=== PATIENT | male | born 1985 | race American Indian/Alaskan Native ===

== ENCOUNTER 2016-06-18 18:52 | Emergency (ER) | payer OTHER ==
--- NOTE | 2016-06-18 22:27 | Emergency Department Report ---
ED ENT HPI - General Chief complaint: Sore Throat Stated complaint: THROAT PAIN/POSS CYST Source: patient Mode of arrival: Ambulatory Limitations: No Limitations - History of Present Illness Initial comments: 31 year old male presents to ED with sore throat, painful swallowing, dry cough x 3 days. patient denies fevers. patient states he had moderate swelling on left side of throat but today the swelling decreased and he could taste drainage in the back of his throat. patient is alert, stable, neurologically intact and in no acute distress during examination. MD complaint: sore throat -: Gradual Location: throat Severity: mild Quality: aching Consistency: intermittent Worsens with: swallowing Associated Symptoms: cough, pain with swallowing, sore throat - Related Data Previous Rx's Medication Instructions Recorded Last Taken Type Docusate Sodium [Colace] 100 mg PO BID #60 capsule 10/31/13 Unknown Rx Promethazine [Phenergan] 25 mg PO Q6H PRN #25 tablet 10/31/13 Unknown Rx Allergies Allergy/AdvReac Type Severity Reaction Status Date / Time No Known Allergies Allergy Verified 06/18/16 22:33 ED Dental HPI - General Chief complaint: Sore Throat Stated complaint: THROAT PAIN/POSS CYST Source: patient Mode of arrival: Ambulatory Limitations: No Limitations - Related Data Previous Rx's Medication Instructions Recorded Last Taken Type Docusate Sodium [Colace] 100 mg PO BID #60 capsule 10/31/13 Unknown Rx Promethazine [Phenergan] 25 mg PO Q6H PRN #25 tablet 10/31/13 Unknown Rx Allergies Allergy/AdvReac Type Severity Reaction Status Date / Time No Known Allergies Allergy Verified 06/18/16 22:33 ED Review of Systems ROS: Stated complaint: THROAT PAIN/POSS CYST Other details as noted in HPI Constitutional: denies: chills, fever Eyes: denies: eye pain, eye discharge, vision change ENT: ear pain, throat pain Respiratory: cough. denies: shortness of breath, wheezing Cardiovascular: denies: chest pain, palpitations Endocrine: no symptoms reported Gastrointestinal: denies: abdominal pain, nausea, diarrhea Genitourinary: denies: urgency, dysuria Musculoskeletal: denies: back pain, joint swelling, arthralgia Skin: denies: rash, lesions Neurological: denies: headache, weakness, paresthesias Psychiatric: denies: anxiety, depression Hematological/Lymphatic: swollen glands. denies: easy bleeding, easy bruising ED Past Medical Hx - Past Medical History Additional medical history: Cyst in throat - Surgical History Additional Surgical History: Hernia Repair - Social History Smoking Status: Current Every Day Smoker Substance Use Type: None - Medications Home Medications: Home Medications Medication Instructions Recorded Confirmed Last Taken Type Docusate Sodium [Colace] 100 mg PO BID #60 capsule 10/31/13 Unknown Rx Promethazine [Phenergan] 25 mg PO Q6H PRN #25 tablet 10/31/13 Unknown Rx ED Physical Exam - General Limitations: No Limitations General appearance: alert, in no apparent distress - Head Head exam: Present: atraumatic, normocephalic - Eye Eye exam: Present: normal appearance - ENT ENT exam: Present: normal exam, mucous membranes moist, TM's normal bilaterally - Neck Neck exam: Present: normal inspection, tenderness, full ROM, lymphadenopathy ( left cervical anterior lymph node minimally enlarged) - Respiratory Respiratory exam: Present: normal lung sounds bilaterally. Absent: respiratory distress - Cardiovascular Cardiovascular Exam: Present: regular rate, normal rhythm. Absent: systolic murmur, diastolic murmur, rubs, gallop - GI/Abdominal GI/Abdominal exam: Present: soft, normal bowel sounds - Rectal Rectal exam: Present: deferred - Extremities Exam Extremities exam: Present: normal inspection - Back Exam Back exam: Present: normal inspection - Neurological Exam Neurological exam: Present: alert, oriented X3 - Psychiatric Psychiatric exam: Present: normal affect, normal mood - Skin Skin exam: Present: warm, dry, intact, normal color. Absent: rash ED Course Vital Signs 06/18/16 06/19/16 19:40 00:06 Temperature 97.7 F 98.2 F Pulse Rate 70 65 Respiratory 18 16 Rate Blood Pressure 118/80 Blood Pressure 118/80 128/79 [Left] O2 Sat by Pulse 99 98 Oximetry ED Medical Decision Making - Lab Data Positive Strep Screen Microbiology 06/19/16 00:30 Influenza Types A,B Antigen (JOSHUA) - Final Nasopharyngeal Swab 06/18/16 00:30 Group A Streptococcus Rapid Screen - Final Throat Microbiology 06/19/16 00:30 Nasopharyngeal Swab Influenza Types A,B Antigen (JOSHUA) - Final 06/18/16 00:30 Throat Group A Streptococcus Rapid Screen - Final - Medical Decision Making 31 year old male presents to ED with sore throat. Patient will be treated for positive strep screening in ED with IM antibiotics. patient is stable, neurologically intact and in no acute distress. Critical care attestation.: If time is entered above; I have spent that time in minutes in the direct care of this critically ill patient, excluding procedure time. ED Disposition Clinical Impression: Pharyngitis, streptococcal, acute Disposition: DISCHARGED TO HOME OR SELFCARE Is pt being admited?: No Does the pt Need Aspirin: No Condition: Stable Instructions: Strep Throat (ED) Referrals: PRIMARY CARE, [Primary Care Provider] - 3-5 Days Forms: Work/School Release Form(ED)
[2016-06-18] MEDS ORDERED: TORADOL IM ONE (22:28)
[2016-06-18] MEDS ORDERED: PHENERGAN/CODEINE 6.25-10 MG/5ML PO ONE (22:28)
[2016-06-19 00:15] VITALS: BP 128/79
[2016-06-19] MEDS ORDERED: BICILLIN L-A IM ONE (01:58)
== END 2016-06-19 02:14 | disposition home or self-care (01) ==
LOC: ED 18:52
DX: J02.0 Streptococcal pharyngitis (principal); F17.200 Nicotine dependence, unspecified, uncomplicated
CPT/HCPCS: 87400; 87430; 96372; 99283; J0561; J1885